=== PATIENT | male | born 1985 | race Caucasian/White ===

== ENCOUNTER 2018-02-10 11:04 | Emergency (ER) | payer OTHER ==
[2018-02-10 11:11] VITALS: RESP 16; TEMP 98.4; O2SAT 98
--- NOTE | 2018-02-10 11:54 | C.PDOC ---
History Of Present Illness 32 y/o male presents to ED complaining of intermittent pain and swelling in his right ear for the past several weeks. States that he tried to put olive oil in his ear last week with no improvement. Denies fever, throat pain, rash, headache, or dizziness. Patient has not seen a doctor for his symptoms. Time Seen by Provider: 02/10/18 11:27 Chief Complaint (Nursing): ENT Problem History Per: Patient History/Exam Limitations: None Onset/Duration Of Symptoms: Days Current Symptoms Are (Timing): Still Present Past Medical History Reviewed: Historical Data, Nursing Documentation, Vital Signs Vital Signs: Last Vital Signs Temp 98.4 F 02/10/18 11:09 Pulse 64 02/10/18 11:09 Resp 16 02/10/18 11:09 BP 126/77 02/10/18 11:09 Pulse Ox 98 02/10/18 11:09 Family History: States: No Known Family Hx - Social History Hx Alcohol Use: Yes Hx Substance Use: No - Immunization History Hx Tetanus Toxoid Vaccination: No Hx Influenza Vaccination: No Hx Pneumococcal Vaccination: No Review Of Systems Constitutional: Negative for: Fever ENT: Positive for: Ear Pain (R). Negative for: Throat Pain Skin: Negative for: Rash Neurological: Negative for: Headache, Dizziness Physical Exam - Physical Exam Appears: Non-toxic, No Acute Distress Skin: Warm, Dry, No Rash Head: Atraumatic, Normacephalic Eye(s): bilateral: Normal Inspection, PERRL, EOMI Ear(s): Left: Normal, Right: Other (purulent white discharge and swelling in ear canal. No mastoid tenderness to palpation.) Oral Mucosa: Moist Throat: Normal, No Erythema, No Exudate Neck: Supple Chest: Symmetrical Cardiovascular: Rhythm Regular, No Murmur Respiratory: Normal Breath Sounds, No Rales, No Rhonchi, No Wheezing Gastrointestinal/Abdominal: Soft, No Tenderness Extremity: Bilateral: Atraumatic, Normal Color And Temperature, Normal ROM Neurological/Psych: Oriented x3, Normal Speech ED Course And Treatment O2 Sat by Pulse Oximetry: 98 (RA) Pulse Ox Interpretation: Normal Progress Note: Patient was given antibiotics PO, drops and ibuprofen. Patient will be discharged home and was instructed to follow up with ENT specialist Dr. Rodriges. Disposition Counseled Patient/Family Regarding: Diagnosis, Need For Followup, Rx Given - Disposition Referrals: Jose C Rodriges MD [Staff Provider] - Karuna Pope [Staff Provider] - Disposition: HOME/ ROUTINE Disposition Time: 12:15 Condition: STABLE Additional Instructions: FOLLOW UP WITH ENT SPECIALIST WITHIN 1 WEEK USE MEDICATIONS DIRECTED RETURN TO ER IF SYMPTOMS WORSEN Prescriptions: Ciprofloxacin [Cipro] 1 tab PO BID #14 tab Ibuprofen [Motrin Tab] 600 mg PO Q6 PRN #30 tab PRN Reason: fever/pain Ofloxacin Otic 0.3% [Floxin 0.3% Otic Soln] 10 drop GT ONCE #1 bottle Instructions: Outer Ear Infection (DC) Forms: [employer] ([place] Citizen) Print Language: CITIZEN OF [place] - Clinical Impression Clinical Impression: Otitis externa - Scribe Statement The provider has reviewed the documentation as recorded by the Matildaibaustyn Mena Provider Attestation: All medical record entries made by the Matildaibaustyn were at my direction and personally dictated by me. I have reviewed the chart and agree that the record accurately reflects my personal performance of the history, physical exam, medical decision making, and the department course for this patient. I have also personally directed, reviewed, and agree with the discharge instructions and disposition.
[2018-02-10 12:12] VITALS: BP 115/85; PULSE 68
== END 2018-02-10 12:11 | disposition home or self-care (01) ==
LOC: C.ER 11:04
DX: H60.91 Unspecified otitis externa, right ear (principal)

== ENCOUNTER 2018-05-25 15:32 | Emergency (ER) | payer OTHER ==
[2018-05-25 15:50] VITALS: TEMP 98.7
--- NOTE | 2018-05-25 16:28 | C.PDOC ---
History Of Present Illness 33 years old male presents to ED for complaints of intermittent abdominal pain that began 8 days ago. Patient reports associated symptoms of nausea and constipation but had a bowel movement today. Denies any other complaints. <Charla Faust - Last Filed: 05/25/18 18:58> History Per: Patient History/Exam Limitations: no limitations Onset/Duration Of Symptoms: Hrs Current Symptoms Are (Timing): Still Present Location Of Pain/Discomfort: LLQ Radiation Of Pain To:: None Associated Symptoms: Nausea, Constipation. denies: Fever, Chills, Vomiting, Diarrhea Exacerbating Factors: None Alleviating Factors: None Last Bowel Movement: Today Recent travel outside of the [place]: No <Charla Faust - Last Filed: 05/25/18 18:58> <Luis Angel Davis - Last Filed: 05/25/18 20:33> Time Seen by Provider: 05/25/18 15:35 Chief Complaint (Nursing): Abdominal Pain Past Medical History Reviewed: Historical Data, Nursing Documentation, Vital Signs Vital Signs: Last Vital Signs Temp 98.7 F 05/25/18 15:41 Pulse 64 05/25/18 15:41 Resp 18 05/25/18 15:41 BP 117/72 05/25/18 15:41 Pulse Ox 100 05/25/18 15:41 - Medical History PMH: No Chronic Diseases Surgical History: No Surg Hx Family History: States: No Known Family Hx - Social History Hx Alcohol Use: No Hx Substance Use: No - Immunization History Hx Tetanus Toxoid Vaccination: No Hx Influenza Vaccination: No Hx Pneumococcal Vaccination: No <Charla Faust - Last Filed: 05/25/18 18:58> Vital Signs: Last Vital Signs Temp 98.7 F 05/25/18 19:30 Pulse 58 L 05/25/18 19:30 Resp 16 05/25/18 19:30 BP 127/79 05/25/18 19:30 Pulse Ox 99 05/25/18 19:30 <Luis Angel Davis - Last Filed: 05/25/18 20:33> Review Of Systems Except As Marked, All Systems Reviewed And Found Negative. Constitutional: Negative for: Fever, Chills Gastrointestinal: Positive for: Nausea, Abdominal Pain (LLQ), Constipation. Negative for: Vomiting, Diarrhea Skin: Negative for: Rash Neurological: Negative for: Weakness, Numbness <Charla Faust - Last Filed: 05/25/18 18:58> Physical Exam - Physical Exam Appears: Non-toxic, No Acute Distress Skin: Normal Color, Warm, Dry, No Rash Head: Atraumatic, Normacephalic Eye(s): bilateral: Normal Inspection, PERRL, EOMI Oral Mucosa: Moist Neck: Normal ROM, Supple Chest: Symmetrical, No Tenderness Cardiovascular: Rhythm Regular, No Murmur Respiratory: Normal Breath Sounds, No Rales, No Rhonchi, No Wheezing Gastrointestinal/Abdominal: Soft, Tenderness (LLQ) Extremity: Normal ROM Extremity: Bilateral: Atraumatic, Normal Color And Temperature, Normal ROM Pulses: Left Radial: Normal, Right Radial: Normal Neurological/Psych: Oriented x3, Normal Speech Gait: Steady <Charla Faust - Last Filed: 05/25/18 18:58> ED Course And Treatment - Laboratory Results Result Diagrams: 05/25/18 17:03 05/25/18 17:03 O2 Sat by Pulse Oximetry: 100 (RA) Pulse Ox Interpretation: Normal <Charla Faust - Last Filed: 05/25/18 18:58> - Laboratory Results Result Diagrams: 05/25/18 17:03 05/25/18 17:03 Lab Results: Total Bilirubin 0.4 mg/dL (0.2-1.3) 05/25/18 17:03 AST 24 U/L (17-59) 05/25/18 17:03 ALT 20 U/L (21-72) L 05/25/18 17:03 Alkaline Phosphatase 49 U/L (38-126) 05/25/18 17:03 Total Protein 7.2 g/dL (6.3-8.3) 05/25/18 17:03 Albumin 4.5 g/dL (3.5-5.0) 05/25/18 17:03 Globulin 2.6 gm/dL (2.2-3.9) 05/25/18 17:03 Albumin/Globulin Ratio 1.7 (1.0-2.1) 05/25/18 17:03 Lipase 71 U/L (23-300) 05/25/18 17:03 Urine Color Yellow (YELLOW) 05/25/18 17:03 Urine Clarity Clear (Clear) 05/25/18 17:03 Urine pH 6.0 (5.0-8.0) 05/25/18 17:03 Ur Specific [place] 1.014 (1.003-1.030) 05/25/18 17:03 Urine Protein Negative mg/dL (NEGATIVE) 05/25/18 17:03 Urine Glucose (UA) Normal mg/dL (Normal) 05/25/18 17:03 Urine Ketones Negative mg/dL (NEGATIVE) 05/25/18 17:03 Urine Blood Negative (NEGATIVE) 05/25/18 17:03 Urine Nitrate Negative (NEGATIVE) 05/25/18 17:03 Urine Bilirubin Negative (NEGATIVE) 05/25/18 17:03 Urine Urobilinogen Normal mg/dL (0.2-1.0) 05/25/18 17:03 Ur Leukocyte Esterase Trace [place]/uL (Negative) 05/25/18 17:03 Urine WBC (Auto) < 1 /hpf (0-5) 05/25/18 17:03 Urine RBC (Auto) < 1 /hpf (0-3) 05/25/18 17:03 Lab Interpretation: Normal (UA neg.) Pulse Ox Interpretation: Normal - CT Scan/US CT Abd/pelvis Other Rad Studies (CT/US): Interpreted By Me, Radiology Report Reviewed (no acute findings, +FOS) Reevaluation Time: 20:32 Reassessment Condition: Improved <Luis Angel Davis - Last Filed: 05/25/18 20:33> Medical Decision Making Medical Decision Making: signed over @ 1900, RLQ abd pain, normal labs, pending CT pt seen examined NAD R colon dull to percussion CT sig for +FOS <Luis Angel Davis - Last Filed: 05/25/18 20:33> Disposition - Disposition Disposition Time: 18:59 <Charla Faust - Last Filed: 05/25/18 18:58> Doctor Will See Patient In The: Office Counseled Patient/Family Regarding: Studies Performed, Diagnosis <Luis Angel Davis - Last Filed: 05/25/18 20:33> - Disposition Disposition: HOME/ ROUTINE Condition: GOOD Forms: [facility] ([place]) - Clinical Impression Clinical Impression: Abdominal colic - PA / P[employer]ACH[employer] / Resident Statement MD/DO has reviewed & agrees with the documentation as recorded. - Scribe Statement The provider has reviewed the documentation as recorded by the Scribe Garret Willett All medical record entries made by the Matildaibe were at my direction and personally dictated by me. I have reviewed the chart and agree that the record accurately reflects my personal performance of the history, physical exam, medical decision making, and the department course for this patient. I have also personally directed, reviewed, and agree with the discharge instructions and disposition. <Charla Faust - Last Filed: 05/25/18 18:58> Physician Patient Turnover Patient Signed Over To: Luis Angel Davis Handoff Comments: Pending CT abdomen/pelvis <Charla Faust - Last Filed: 05/25/18 18:58>
[2018-05-25] MEDS ORDERED: Sodium Chloride 0.9% 1,000 ML IV STA (16:43)
[2018-05-25] MEDS ORDERED: Iohexol 240 (50 ml) PO STA (16:43)
[2018-05-25] MEDS ORDERED: Sodium Chloride 0.9% 1,000 ML ONE (16:54)
[2018-05-25] MEDS ORDERED: Iohexol 240 (50 ml) ONE (17:06)
[2018-05-25 17:07] LABS: BASO % 0.5 % (0.0-2.0); EOS # 0.1 K/uL (0.0-0.7); EOS % 0.9 % (0.0-4.0); HEMOGLOBIN 15.5 g/dL (12.0-18.0); LYMPH # 2.1 K/uL (1.0-4.3); LYMPH % 35.4 % (20.0-40.0); MEAN CELL VOLUME 88.6 fL (80.0-94.0); MEAN CORPUSCULAR HEMOGLOBIN 30.6 pg (27.0-31.0); MEAN CORPUSCULAR HGB CONC 34.5 g/dL (33.0-37.0); MEAN PLATELET VOLUME 6.1 fL (7.2-11.7); MONO # 0.5 K/uL (0.0-0.8); MONO % 7.8 % (0.0-10.0); NEUT # 3.3 K/uL (1.8-7.0); NEUT % 55.4 % (50.0-75.0); NRBC % 0.2 % (0.0-2.0); RBC 5.06 Mil/uL (4.40-5.90); RED CELL DISTRIBUTION WIDTH 12.6 % (11.5-14.5); WHITE BLOOD COUNT 5.9 K/uL (4.8-10.8)
[2018-05-25 17:09] LABS: URINE BILIRUBIN NEGATIVE (NEGATIVE); URINE BLOOD NEGATIVE (NEGATIVE); URINE CLARITY Clear (Clear); URINE COLOR Yellow (YELLOW); URINE GLUCOSE (UA) NORMAL (Normal); URINE LEUKOCYTE ESTERASE TRACE Leu/uL (Negative); URINE PROTEIN NEGATIVE (NEGATIVE); URINE UROBILINOGEN NORMAL mg/dL (0.2-1.0)
[2018-05-25 17:20] LABS: ALB/GLOB RATIO 1.7 (1.0-2.1); ALBUMIN 4.5 g/dL (3.5-5.0); ALT/SGPT 20 U/L (21-72); AST/SGOT 24 U/L (17-59); BLOOD UREA NITROGEN 17 mg/dL (9-20); CALCIUM 9.7 mg/dl (8.6-10.4); GFR NON-AFRICAN AMERICAN > 60; LIPASE 71 U/L (23-300)
[2018-05-25] MEDS ORDERED: Iodixanol 320 MG/ML 100 ML BOTTLE IV ONE (18:01)
[2018-05-25 19:31] VITALS: BP 127/79; PULSE 58; RESP 16; O2SAT 99
[2018-05-25] MEDS ORDERED: Magnesium Citrate Oral SOL (300 ml) PO ONE (20:34)
[2018-05-25] MEDS ORDERED: Magnesium Citrate Oral SOL (300 ml) ONE (20:42)
--- NOTE | 2018-05-26 09:29 | CT ---
Date of service: 05/25/2018 PROCEDURE: CT Abdomen and Pelvis with contrast HISTORY: abd pain, nausea COMPARISON: None. TECHNIQUE: Contrast dose: 100 mL of Visipaque 320 intravenously. Axial and reformatted coronal and sagittal CT images of the abdomen and pelvis were obtained after IV and oral contrast administration. Radiation dose: Total exam DLP = 429.53 mGy-cm. This CT exam was performed using one or more of the following dose reduction techniques: Automated exposure control, adjustment of the mA and/or kV according to patient size, and/or use of iterative reconstruction technique. FINDINGS: LOWER THORAX: Unremarkable. LIVER: Unremarkable. No gross lesion or ductal dilatation. GALLBLADDER AND BILE DUCTS: Unremarkable. PANCREAS: Unremarkable. No gross lesion or ductal dilatation. SPLEEN: Unremarkable. ADRENALS: Unremarkable. No mass. KIDNEYS AND URETERS: Unremarkable. No hydronephrosis. No solid mass. VASCULATURE: Unremarkable. No aortic aneurysm. No aortic atherosclerotic calcification or mural plaque present. BOWEL: There is gastric and proximal small bowel wall thickening noted. Findings may represent gastroenteritis. Mild constipation is noted. No evidence of high-grade bowel obstruction. APPENDIX: Normal appendix. PERITONEUM: Unremarkable. No free fluid. No free air. LYMPH NODES: Unremarkable. No enlarged lymph nodes. BLADDER: The bladder is not fully distended demonstrates mild wall thickening. REPRODUCTIVE: Unremarkable. BONES: No acute fracture. OTHER FINDINGS: None. IMPRESSION: Diffuse gastric and small bowel wall thickening suspicious for gastroenteritis. Mild constipation. Otherwise no CT evidence of acute pathology in the abdomen and pelvis.
== END 2018-05-25 20:51 | disposition home or self-care (01) ==
LOC: C.ER 15:32
DX: R10.84 Generalized abdominal pain (principal)
CPT/HCPCS: 74177; 80053; 81001; 83690; 85025; 96361; 96374; 96375; 99284; C9113; J2405; J7030; Q9966; Q9967